=== PATIENT | female | born 1985 | race African-American/Black ===

== ENCOUNTER 2018-12-10 15:59 | Emergency (ER) | payer SELFPAY ==
[2018-12-10] MEDS ORDERED: DIPHENHYDRAMINE 50 MG/ML VIAL ONE (16:24)
[2018-12-10] MEDS ORDERED: FAMOTIDINE 20 MG/2 ML VIAL IV ONE (16:25)
--- NOTE | 2018-12-10 16:58 | EDPHYS ---
Physician Documentation [facility] Name: Marya Perdue Age: 33 yrs Sex: Female : 1985 Arrival Date: 12/10/2018 Time: 16:00 Bed 4 Private MD: ED Physician Livan French HPI: 12/10 16:03 This 33 yrs old Female presents to ER via Unassigned with complaints of Allergic jr8 Reaction. 16:03 The patient presents with localized swelling. Onset: The symptoms/episode jr8 began/occurred acutely, today. Associated signs and symptoms: The patient has no apparent associated signs or symptoms. Possible causes: antibiotics, cephalosporin. At home the patient or guardian has treated the symptoms with nothing. Severity of symptoms: At their worst the symptoms were moderate in the emergency department the symptoms are unchanged. It is unknown whether or not the patient has had similar symptoms in the past. The patient has been recently seen by a physician:. Patient had been having problems with her ears and was put on Cefdinir. Stated that she took first dose last night and then again at 8 am this morning. Stated that around 6 am started to have swelling and pain to lower jaw region. Noticed that large bumps started to appear. Denies rash or difficulty breathing . Historical: - Allergies: 16:05 PENICILLINS; sv 16:05 CEPHALOSPORINS; sv - PMHx: 16:05 Bipolar disorder; Schizophrenia; Depression; Anxiety; sv - Immunization history:: Adult Immunizations up to date. - Social history:: Smoking status: Patient uses tobacco products, smokes one-half pack cigarettes per day, Patient uses street drugs, cocaine, marijuana, last cocaine used was 3 weeks, marijuana was Friday. - Ebola Screening: : No symptoms or risks identified at this time. ROS: 16:08 Eyes: Negative for injury, pain, redness, and discharge, ENT: Negative for injury, jr8 pain, and discharge, Neck: Negative for injury, pain, and swelling, Cardiovascular: Negative for chest pain, palpitations, and edema, Respiratory: Negative for shortness of breath, cough, wheezing, and pleuritic chest pain, Abdomen/GI: Negative for abdominal pain, nausea, vomiting, diarrhea, and constipation, Back: Negative for injury and pain, MS/Extremity: Negative for injury and deformity, Skin: Negative for injury, rash, and discoloration, Neuro: Negative for headache, weakness, numbness, tingling, and seizure. 16:08 Hematologic/Lymphatic: Positive for swollen nodes. Exam: 16:08 Eyes: Pupils equal round and reactive to light, extra-ocular motions intact. Lids and jr8 lashes normal. Conjunctiva and sclera are non-icteric and not injected. Cornea within normal limits. Periorbital areas with no swelling, redness, or edema. ENT: Nares patent. No nasal discharge, no septal abnormalities noted. Tympanic membranes are normal and external auditory canals are clear. Oropharynx with no redness, swelling, or masses, exudates, or evidence of obstruction, uvula midline. Mucous membranes moist. Neck: Trachea midline, no thyromegaly or masses palpated. Lymphadenopathy present to sub mental and sub mandibular regions. Supple, full range of motion without nuchal rigidity, or vertebral point tenderness. No Meningismus. Cardiovascular: Regular rate and rhythm with a normal S1 and S2. No gallops, murmurs, or rubs. Normal PMI, no JVD. No pulse deficits. Respiratory: Lungs have equal breath sounds bilaterally, clear to auscultation and percussion. No rales, rhonchi or wheezes noted. No increased work of breathing, no retractions or nasal flaring. Abdomen/GI: Soft, non-tender, with normal bowel sounds. No distension or tympany. No guarding or rebound. No evidence of tenderness throughout. Back: No spinal tenderness. No costovertebral tenderness. Full range of motion. Skin: Warm, dry with normal turgor. Normal color with no rashes, no lesions, and no evidence of cellulitis. MS/ Extremity: Pulses equal, no cyanosis. Neurovascular intact. Full, normal range of motion. Neuro: Awake and alert, GCS 15, oriented to person, place, time, and situation. Cranial nerves II-XII grossly intact. Motor strength 5/5 in all extremities. Sensory grossly intact. Cerebellar exam normal. Normal gait. Vital Signs: 16:05 BP 132 / 87; Pulse 72; Resp 18; Temp 97.9; Pulse Ox 100% ; Weight 66.68 kg; Height 5 sv ft. 5 in. (165.10 cm); Pain 0/10; 16:45 BP 122 / 87; Pulse 64; Resp 18; Pulse Ox 100% on R/A; sv 16:05 Body Mass Index 24.46 (66.68 kg, 165.10 cm) sv MDM: 16:02 Patient medically screened. jr8 16:55 Data reviewed: vital signs, nurses notes, and as a result, I will discharge patient. jr8 Data interpreted: Pulse oximetry: on room air is 100 %. Interpretation: normal. Counseling: I had a detailed discussion with the patient and/or guardian regarding: the historical points, exam findings, and any diagnostic results supporting the discharge/admit diagnosis, the need for outpatient follow up, a family practitioner, to return to the emergency department if symptoms worsen or persist or if there are any questions or concerns that arise at home. Response to treatment: the patient's symptoms have markedly improved after treatment. ED course: Lymphadenopathy is decreasing. Patient feeling much better. Will d/c antibiotics. Will be prescribed steroids and benadryl. 12/10 16:03 Order name: IV; Complete Time: 16:07 [facility] Administered Medications: 16:10 Drug: Pepcid 20 mg Route: IVP; Site: left antecubital; sv 16:45 Follow up: Response: No adverse reaction; Marked relief of symptoms sv 16:12 Drug: Benadryl 25 mg Route: IVP; Site: left antecubital; sv 16:45 Follow up: Response: No adverse reaction; Marked relief of symptoms sv Disposition: 12/11 06:51 Co-signature as Attending Physician, Livan French MD I agree with the assessment and kdr plan of care. Disposition: 12/10/18 16:57 Discharged to Home. Impression: Allergic Reaction . - Condition is Stable. - Discharge Instructions: Anaphylactic Reaction, Adult. - Prescriptions for Benadryl 25 mg Oral Capsule - take 1 capsule by ORAL route every 6 hours As needed; 30 tablet. Prednisone 20 mg Oral Tablet - take 1 tablet by ORAL route once daily for 5 days; 5 tablet. - Medication Reconciliation Form, Thank You Letter, Antibiotic Education, Prescription Opioid Use form. - Follow up: Private Physician; When: 2 - 3 days; Reason: Recheck today's complaints, Continuance of care, Re-evaluation by your physician. - Problem is new. - Symptoms have improved. Signatures: Jennifer Reza RN RN Livan Fernandes MD MD kdr Roszak Manolo, PA PA jr8 Corrections: (The following items were deleted from the chart) 12/10 16:09 16:03 Patient had been having problems with her ears and was put on Cefdinir. Stated jr8 that she took first dose last night and then again at 8 am this morning. Stated . jr8 17:06 16:57 12/10/2018 16:57 Discharged to Home. Impression: Allergic Reaction . Condition is sv Stable. Forms are Medication Reconciliation Form, Thank You Letter, Antibiotic Education, Prescription Opioid Use. Follow up: Private Physician; When: 2 - 3 days; Reason: Recheck today's complaints, Continuance of care, Re-evaluation by your physician. Problem is new. Symptoms have improved. jr8
--- NOTE | 2018-12-10 16:58 | ER ---
Nurse's Notes [facility] Name: Marya Perdue Age: 33 yrs Sex: Female : 1985 Arrival Date: 12/10/2018 Time: 16:00 Bed 4 Private MD: Diagnosis: Allergic Reaction Presentation: 12/10 15:54 Presenting complaint: EMS states: called out for allergic reaction that started this sv morning around 0600. Pt reports going to [facility] for ear pain and they gave her a IM injection of Cefdinir yesterday. Pt reports lip swelling and difficulty swallowing this morning and went back to the clinic and they gave her a steroid IM injection, no change in condition. BP 133/84 HR-81 100% RA. Transition of care: patient was received from another setting of care (rehabilitation facility). Onset: The symptoms/episode began/occurred suddenly, at 06:00. Anaphylaxis evaluation, angioedema. Onset of symptoms was December 10, 2018. Risk Assessment: Do you want to hurt yourself or someone else? Patient reports no desire to harm self or others. Initial Sepsis Screen: Does the patient meet any 2 criteria? No. Patient's initial sepsis screen is negative. Does the patient have a suspected source of infection? No. Patient's initial sepsis screen is negative. Care prior to arrival: None. 15:54 Method Of Arrival: EMS: [facility] 15:54 Acuity: MARCUS 3 sv Triage Assessment: 15:54 General: Appears in no apparent distress. uncomfortable, slender, Behavior is sv cooperative, appropriate for age, anxious. Pain: Complains of pain in neck. Neuro: Level of Consciousness is awake, alert, obeys commands, Oriented to person, place, time, situation, Moves all extremities. Full function Speech is normal. Respiratory: Airway is patent Respiratory effort is even, unlabored, Respiratory pattern is regular, symmetrical, Breath sounds are clear bilaterally. Denies shortness of breath. Derm: Skin is normal. Musculoskeletal: Swelling present in mouth and neck. 16:16 Cardiovascular: Patient's skin is warm and dry. sv Historical: - Allergies: 16:05 PENICILLINS; sv 16:05 CEPHALOSPORINS; sv - PMHx: 16:05 Bipolar disorder; Schizophrenia; Depression; Anxiety; sv - Immunization history:: Adult Immunizations up to date. - Social history:: Smoking status: Patient uses tobacco products, smokes one-half pack cigarettes per day, Patient uses street drugs, cocaine, marijuana, last cocaine used was 3 weeks, marijuana was Friday. - Ebola Screening: : No symptoms or risks identified at this time. Screenin:05 Abuse screen: Denies threats or abuse. Denies injuries from another. Nutritional sv screening: No deficits noted. Tuberculosis screening: No symptoms or risk factors identified. Fall Risk None identified. Assessment: 16:16 Reassessment: Patient appears in no apparent distress at this time. No changes from sv previously documented assessment. Patient and/or family updated on plan of care and expected duration. Pain level reassessed. Patient is alert, oriented x 3, equal unlabored respirations, skin warm/dry/pink. 16:45 Reassessment: Patient appears in no apparent distress at this time. Patient and/or sv family updated on plan of care and expected duration. Pain level reassessed. Patient is alert, oriented x 3, equal unlabored respirations, skin warm/dry/pink. Patient states feeling better. Patient states symptoms have improved. Vital Signs: 16:05 BP 132 / 87; Pulse 72; Resp 18; Temp 97.9; Pulse Ox 100% ; Weight 66.68 kg; Height 5 sv ft. 5 in. (165.10 cm); Pain 0/10; 16:45 BP 122 / 87; Pulse 64; Resp 18; Pulse Ox 100% on R/A; sv 16:05 Body Mass Index 24.46 (66.68 kg, 165.10 cm) sv ED Course: 16:00 Patient arrived in ED. sv 16:00 Jennifer Reza RN is Primary Nurse. sv 16:02 Manolo Perez PA is PHCP. jr8 16:02 Livan French MD is Attending Physician. jr8 16:03 Triage completed. sv 16:05 Arm band placed on. sv 16:05 Patient has correct armband on for positive identification. Bed in low position. Call sv light in reach. Adult w/ patient. Pulse ox on. NIBP on. Head of bed elevated. 16:05 Inserted saline lock: 22 gauge in left antecubital area, using aseptic technique. sv ,using aseptic technique. done by Roxi Wadsworth RN. 16:16 Door closed. Warm blanket given. sv 17:05 No provider procedures requiring assistance completed. IV discontinued, intact, sv bleeding controlled, No redness/swelling at site. Pressure dressing applied. Administered Medications: 16:10 Drug: Pepcid 20 mg Route: IVP; Site: left antecubital; sv 16:45 Follow up: Response: No adverse reaction; Marked relief of symptoms sv 16:12 Drug: Benadryl 25 mg Route: IVP; Site: left antecubital; sv 16:45 Follow up: Response: No adverse reaction; Marked relief of symptoms sv Outcome: 16:57 Discharge ordered by MD. mccrary 17:05 Discharged to home ambulatory, with friend. sv 17:05 Condition: stable 17:05 Discharge instructions given to patient, friend, Instructed on discharge instructions, follow up and referral plans. medication usage, Demonstrated understanding of instructions, follow-up care, medications, Prescriptions given X 2. 17:06 Patient left the ED. sv Signatures: Jennifer Reza RN RN sv Manolo Perez PA PA jr8 Corrections: (The following items were deleted from the chart) 16:16 15:54 Respiratory: Airway is patent Respiratory effort is even, unlabored, Respiratory sv pattern is regular, symmetrical, sv
== END 2018-12-10 17:06 | disposition home or self-care (01) ==
LOC: ER 15:59
DX: R68.84 Jaw pain (principal); R22.0 Localized swelling, mass and lump, head; T78.40XA Allergy, unspecified, initial encounter; F31.9 Bipolar disorder, unspecified; F20.9 Schizophrenia, unspecified; F32.9 Major depressive disorder, single episode, unspecified; F17.210 Nicotine dependence, cigarettes, uncomplicated; Z88.1 Allergy status to other antibiotic agents; Z88.0 Allergy status to penicillin
CPT/HCPCS: 96374; 96375; 99284